=== PATIENT | male | born 1995 | race Caucasian/White ===

== ENCOUNTER 2019-10-21 15:46 | Emergency (ER) | payer SELFPAY ==
[~2019-10-21] VITALS: Ht 177.8 cm; Wt 70.0 kg
[2019-10-21 17:31] VITALS: BP 130/96
== END 2019-10-21 17:32 | disposition home or self-care (01) ==
LOC: ER 15:46
DX: Z03.818 Encounter for observation for suspected exposure to other biological agents ruled out (principal); J40 Bronchitis, not specified as acute or chronic; R03.0 Elevated blood-pressure reading, without diagnosis of hypertension; Z71.89 Other specified counseling
CPT/HCPCS: 99283